=== PATIENT | male | born 1970 | race Caucasian/White ===

== ENCOUNTER 2017-03-24 23:44 | Observation (INO) | payer MEDICARE ==
[2017-03-24] MEDS ORDERED: Sodium Chloride 0.9% 1000 ML 1,000 ML IV SCH (23:45)
[2017-03-24] MEDS ORDERED: BABY ASPIRIN 81 MG CHEW PO ONE (23:54)
[2017-03-24] MEDS ORDERED: SUBLIMAZE 100 MCG/2 ML IV ONE (23:54)
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
[2017-03-25] MEDS ORDERED: BABY ASPIRIN 81 MG CHEW ONE (00:14)
[2017-03-25] MEDS ORDERED: NITRO-BID 2% UD PACKETS ONE (00:14)
[2017-03-25] MEDS ORDERED: SUBLIMAZE 100 MCG/2 ML ONE (00:14)
[2017-03-25] MEDS ORDERED: Sodium Chloride 0.9% 1000 ML 1,000 ML ONE (00:14)
[2017-03-25] MEDS: NITRO-BID 2% UD PACKETS TOP ONE ×2 (00:18→00:25)
[2017-03-25 00:21] LABS: BASOPHIL % 0.9 % (0.0-0.4); Eosinophil % 2.9 % (0.00-5.0); Granulocytes % 58.3 % (36.0-66.0); Lymphocytes % 26.1 % (24.0-44.0); Mean Cell Volume 99.3 fl (78-100); Mean Platelet Volume 9.2 fl (6-9.5); Monocytes % 11.8 % (0.0-12.0); Platelet Count 174 K/mm3 (150-450); Red Blood Count 4.39 M/mm3 (4.1-5.6); Red Cell Distribution Width 13.5 % (11.5-14.0); White Blood Count 4.5 K/mm3 (4.0-10.5)
[2017-03-25 00:44] LABS: ALBUMIN 3.3 g/dL (3.4-5.0); ALKALINE PHOSPHATASE 95 U/L (46-116); ANION GAP 13.1 MEQ/L (5-15); BILIRUBIN,TOTAL 0.5 mg/dL (0.2-1.0); BLOOD UREA NITROGEN 5 mg/dL (9-20); CHLORIDE 103 mEq/L (98-107); Carbon Dioxide 28.5 mEq/L (21-32); Glucose 118 MG/DL (70-110); Potassium 3.9 mEq/L (3.5-5.1); SGOT/AST 36 U/L (15-37); SGPT/ALT 38 U/L (12-78); SODIUM 141 mEq/L (136-145); Total Protein 6.7 gm/dL (6.4-8.2)
[2017-03-25 01:00] LABS: VBG BASE EXCESS 5.5 (-2.0-2.0); VBG CARBOXYHEMOGLOBIN 14.6 % T HGB (0.0-6.9); VBG HCO3- 30.6 meq/L (22-28); VBG HEMOGLOBIN 14.9; VBG O2 SATURATION 97.8 (95-100); VBG pH 7.44 (7.32-7.42)
[2017-03-25] MEDS ORDERED: Zofran 4 MG/2 ML VIAL IV PRN (01:58)
[2017-03-25] MEDS ORDERED: Senokot-S Tablet PO PRN (01:58)
[2017-03-25] MEDS ORDERED: TYLENOL 325 MG PO PRN (01:58)
[2017-03-25] MEDS ORDERED: MAALOX ES 30 ML UNIT DOSE PO PRN (01:58)
[2017-03-25] MEDS ORDERED: MILK OF MAGNESIA 30 ML PO PRN (01:58)
[2017-03-25] MEDS ORDERED: Sodium Chloride 0.9% 500 ML 500 ML IV SCH (01:58)
[2017-03-25] MEDS ORDERED: Spiriva 18 Mcg/Cap Inhaler IH ONE (03:16)
[2017-03-25] MEDS ORDERED: PROVENTIL COMMON CANISTER IH PRN (03:20)
[2017-03-25 05:30] LABS: VBG BASE EXCESS 4.7 (-2.0-2.0); VBG CARBOXYHEMOGLOBIN 5.8 % T HGB (0.0-6.9); VBG HCO3- 30.9 meq/L (22-28); VBG HEMOGLOBIN 14.1; VBG O2 SATURATION 78.8 (95-100); VBG POTASSIUM 4.1 (3.5-5.1); VBG pH 7.39 (7.32-7.42)
[2017-03-25] MEDS ORDERED: PROVENTIL COMMON CANISTER IH SCH (07:00)
[2017-03-25] MEDS ORDERED: Advair Hfa 230/21 Mcg COMMON CANISTER IH SCH (07:00)
[2017-03-25 07:38] VITALS: BP 113/72; PULSE 83; O2SAT 96
--- NOTE | 2017-03-25 08:59 | XRAY ---
Indication: Chest pain and cough. Comparison: October 31, 2016. Portable chest unchanged again demonstrating right lung postsurgical changes with lung volume loss, pleural thickening, and tracheal traction. Heart is not enlarged. No new/acute cardiopulmonary abnormalities.
[2017-03-25] MEDS ORDERED: Ecotrin 325 MG PO SCH (10:00)
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
[2017-03-25] MEDS ORDERED: Spiriva 18 Mcg/Cap Inhaler IH SCH (19:00)
== END 2017-03-25 09:00 | disposition left against medical advice (07) ==
LOC: ED 23:44 → MED SURG 03-25 01:57
PROVIDERS: ADMIT General Practice; ATTEND General Practice
DX: R07.9 Chest pain, unspecified (principal)
CPT/HCPCS: 36000; 36415; 71010; 80053; 80061; 82805; 83721; 84484; 85025; 93005; 93041; 93268; 94640; 94760; 96360; 96361; 96374; 99285; G0378; J3010; A9270-GY

== ENCOUNTER → 2017-12-18 | Emergency (ER) | payer MEDICARE ==
[~2017-12-18] MED LIST: Sodium Chloride 0.9% 1000 ML 1,000 ML IV STA; Sodium Chloride 0.9% 1000 ML 1,000 ML ONE
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
[2017-12-18 11:15] LABS: BASOPHIL % 0.4 % (0.0-0.4); Basophil (Absolute #) 0.02 (0-0.4); Eosinophil % 2.5 % (0.00-5.0); Eosinophil (Absolute #) 0.12 (0-0.5); Granulocyte Absolute (ANC) 3.33 (1.4-6.9); Granulocytes % 68.2 % (36.0-66.0); Hematocrit 42.9 % (42-50); Hemoglobin 14.1 gm/dl (12.5-18.0); Lymphocyte (Absolute #) 0.89 (1.0-4.6); Lymphocytes % 18.2 % (24.0-44.0); Mean Cell Volume 96.8 fl (78-100); Mean Corpuscular Hemoglobin 31.8 pg (26-32); Mean Corpuscular Hgb Concent. 32.9 g/dl (32-36); Monocyte (Absolute #) 0.52 (0.0-1.3); Monocytes % 10.7 % (0.0-12.0); Platelet Count 125 K/mm3 (150-450); Red Blood Count 4.43 M/mm3 (4.1-5.6); Red Cell Distribution Width 13.2 % (11.5-14.0); White Blood Count 4.9 K/mm3 (4.0-10.5)
--- NOTE | 2017-12-18 11:30 | XRAY ---
Indication: Cough. Comparison: August 15, 2017. PA/lateral chest unchanged again demonstrating right lung post surgical changes including lung volume loss, pleural thickening, and tracheal traction. Remaining heart and left lung unremarkable. Bony thorax intact. No new/acute findings. Impression: Stable nonacute chest with chronic features.
--- NOTE | 2017-12-18 11:31 | XRAY ---
Indication: Dizziness. "Running into morrison." Multiple contiguous axial images obtained through the head without contrast. Comparison: None Ventriculosulcal pattern appears symmetric. No acute intracranial hemorrhage, abnormal extra-axial fluid collection, or mass effect. Fourth ventricle is midline without hydrocephalus. Viveros-white matter differentiation is preserved. Bony calvarium intact. Anatomic variant for nonunited posterior arch of C1. Visualized paranasal sinuses and mastoid air cells are clear. Impression: Normal CT head without contrast exam. CT DI 68.98
[2017-12-18 11:38] LABS: ALBUMIN 3.4 g/dL (3.4-5.0); ALKALINE PHOSPHATASE 79 U/L (46-116); ANION GAP 9.1 MEQ/L (5-15); BLOOD UREA NITROGEN 5 mg/dL (9-20); CHLORIDE 104 mEq/L (98-107); Calcium 8.6 mg/dL (8.5-10.1); Carbon Dioxide 28.3 mEq/L (21-32); Creatinine 1 0.72 mg/dl (0.55-1.30); EST GLOMERULAR FILTRATION RATE > 60 ML/MIN; Glucose 124 MG/DL (70-110); Potassium 3.7 mEq/L (3.5-5.1); SGOT/AST 16 U/L (15-37); SGPT/ALT 11 U/L (12-78); SODIUM 138 mEq/L (136-145); Total Protein 6.1 gm/dL (6.4-8.2)
[2017-12-18 11:55] VITALS: O2SAT 96
[2017-12-18 12:26] VITALS: BP 96/58; PULSE 78
== END | disposition left against medical advice (07) ==
LOC: ED 10:15
DX: R42 Dizziness and giddiness (principal); Z79.899 Other long term (current) drug therapy; Z90.2 Acquired absence of lung [part of]; Z86.79 Personal history of other diseases of the circulatory system; Z85.118 Personal history of other malignant neoplasm of bronchus and lung; I25.2 Old myocardial infarction; F17.200 Nicotine dependence, unspecified, uncomplicated
CPT/HCPCS: 36000; 36415; 70450; 71046; 80053; 84484; 85025; 93005; 96360; 99284

== ENCOUNTER 2018-06-29 18:35 | Emergency (ER) | payer MEDICARE ==
[2018-06-29 18:49] VITALS: PULSE 100
[2018-06-29] MEDS ORDERED: TORAdol 30 mg Injection ONE (18:56)
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
[2018-06-29] MEDS: TORAdol 30 mg Injection IM ONE (19:00)
[2018-06-29 20:03] VITALS: BP 103/76; O2SAT 94
--- NOTE | 2018-06-30 08:42 | XRAY ---
Indication: 5th digit pain following injury. Comparison: None 3 views of the left hand demonstrates nondisplaced minimally angulated fracture involving the proximal shaft of the 5th proximal phalanx with soft tissue swelling. Elsewhere mild osteopenia, mild scaphoid trapezium degenerative changes, and radiocarpal joint space narrowing.
== END 2018-06-29 20:25 | disposition home or self-care (01) ==
LOC: ED 18:35
DX: S62.617A Displaced fracture of proximal phalanx of left little finger, initial encounter for closed fracture (principal); W23.0XXA Caught, crushed, jammed, or pinched between moving objects, initial encounter; Y93.F9 Activity, other caregiving; K21.9 Gastro-esophageal reflux disease without esophagitis; J44.9 Chronic obstructive pulmonary disease, unspecified; I50.9 Heart failure, unspecified; F41.8 Other specified anxiety disorders; Z79.899 Other long term (current) drug therapy; Z72.0 Tobacco use; I25.2 Old myocardial infarction; Z85.118 Personal history of other malignant neoplasm of bronchus and lung
CPT/HCPCS: 73130; 96372; 99284; J1885

== ENCOUNTER 2019-07-27 10:25 | Observation (INO) | payer MEDICARE ==
[2019-07-27] MEDS ORDERED: Sodium Chloride 0.9% 1000 ML 1,000 ML IV STA ×4 (10:43→16:14)
[2019-07-27 11:11] LABS: VBG BASE EXCESS 4.6 (-2.0-2.0); VBG CARBOXYHEMOGLOBIN 4.3 % T HGB (0.0-6.9); VBG HCO3- 29.2 meq/L (22-28); VBG HEMOGLOBIN 14.2; VBG O2 SATURATION 88.7 (95-100); VBG POTASSIUM 4.1 (3.5-5.1); VBG pH 7.45 (7.32-7.42)
[2019-07-27 11:19] LABS: BASOPHIL % 0.5 % (0.0-0.4); Basophil (Absolute #) 0.02 (0-0.4); Eosinophil % 1.4 % (0.00-5.0); Eosinophil (Absolute #) 0.06 (0-0.5); Granulocytes % 66.3 % (36.0-66.0); Hematocrit 40.9 % (42-50); Hemoglobin 13.6 gm/dl (12.5-18.0); Lymphocyte (Absolute #) 0.96 (1.0-4.6); Mean Cell Volume 97.1 fl (78-100); Mean Corpuscular Hemoglobin 32.3 pg (26-32); Mean Corpuscular Hgb Concent. 33.3 g/dl (32-36); Monocyte (Absolute #) 0.43 (0.0-1.3); Monocytes % 9.8 % (0.0-12.0); Platelet Count 142 K/mm3 (150-450); Red Blood Count 4.21 M/mm3 (4.1-5.6); Red Cell Distribution Width 13.4 % (11.5-14.0); White Blood Count 4.4 K/mm3 (4.0-10.5)
[2019-07-27 11:26] LABS: INR 1.14 (0.8-3.0); PROTIME 12.9 SECONDS (8.83-12.87)
[2019-07-27 11:28] LABS: PTT 31.4 SECONDS (24.1-36.1)
[2019-07-27 11:30] LABS: ALBUMIN 3.6 g/dL (3.5-5.0); ALKALINE PHOSPHATASE 142 U/L (38-126); AMYLASE 44 U/L (30-110); ANION GAP 10.3 MEQ/L (5-15); BLOOD UREA NITROGEN 9 mg/dL (9-20); CHLORIDE 104 mmol/L (98-107); Calcium 8.7 mg/dL (8.4-10.2); Carbon Dioxide 27 mmol/L (22-30); Creatinine 1 0.66 mg/dL (0.66-1.25); Glucose 117 mg/dL (74-106); LIPASE 34 U/L (23-300); MAGNESIUM 1.6 mg/dL (1.6-2.3); SGOT/AST 292 U/L (17-59); SGPT/ALT 163 U/L (0-50); SODIUM 138 mmol/L (137-145); Total Protein 6.7 g/dL (6.3-8.2)
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
[2019-07-27 11:53] LABS: ETHYL ALCOHOL < 10 mg/dL (0-10)
[2019-07-27] MEDS ORDERED: Sodium Chloride 0.9% 1000 ML 0 ML ONE (12:32)
[2019-07-27 13:52] LABS: Amphetamine,Urine NEGATIVE (NEGATIVE); Barbiturate,Urine NEGATIVE (NEGATIVE); Benzodiazepine,Urine POSITIVE (NEGATIVE); Cocaine,Urine NEGATIVE (NEGATIVE); Methadone,Urine NEGATIVE (NEGATIVE); Opiate,Urine NEGATIVE (NEGATIVE); PCP,Urine NEGATIVE (NEGATIVE); THC,Urine NEGATIVE (NEGATIVE)
[2019-07-27] MEDS ORDERED: Sodium Chloride 0.9% 1000 ML 1,000 ML ONE ×3 (14:18→18:38)
[2019-07-27 14:21] LABS: Appearance CLEAR (CLEAR); Bilirubin NEGATIVE (NEGATIVE); Blood NEGATIVE Ery/ul (0-5); Glucose NEGATIVE (NEGATIVE); Ketones NEGATIVE (NEGATIVE); Leukocyte Esterase NEGATIVE (NEGATIVE); Mucus SLIGHT /HPF (NEGATIVE); Nitrite NEGATIVE (NEGATIVE); Protein,Urine Dip NEGATIVE (Negative); Specific Gravity 1.008 (1.005-1.025); Urobilinogen 4 mg/dL (0-1)
[2019-07-27] MEDS ORDERED: Romazicon 0.5 MG/5 ML Injection IV ONE (15:26)
[2019-07-27] MEDS ORDERED: Romazicon 0.5 MG/5 ML Injection ONE (15:28)
[2019-07-27] MEDS ORDERED: TYLENOL 325 MG PO PRN (16:14)
[2019-07-27 16:40] VITALS: O2SAT 96
[2019-07-27 18:03] VITALS: BP 94/64; PULSE 102
--- NOTE | 2019-07-27 20:10 | XRAY ---
Indication: Weakness and lethargy. Comparison: December 18, 2017. Portable chest unchanged again demonstrating right lung postsurgical changes including lung volume loss, pleural thickening, and tracheal traction. Remaining heart and left lung unremarkable. Bony thorax intact. No new/acute findings.
--- NOTE | 2019-07-27 20:13 | XRAY ---
Indication: Weakness and lethargy. Multiple contiguous axial images obtained through the head without contrast. Comparison: December 18, 2017. Again normal appearing brain parenchyma, ventricles, and bony calvarium. Visualized paranasal sinuses and mastoid air cells are clear. Impression: Normal CT head without contrast exam. Comment: Preliminary interpretation was made by [facility]. No critical discrepancy. CTDI 69.66
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
== END 2019-07-27 19:40 | disposition home or self-care (01) ==
LOC: ED 10:25 → ICU 16:00
PROVIDERS: ADMIT Family Medicine; ATTEND Family Medicine
DX: G45.9 Transient cerebral ischemic attack, unspecified (principal); R41.82 Altered mental status, unspecified; I95.9 Hypotension, unspecified; R42 Dizziness and giddiness; J44.9 Chronic obstructive pulmonary disease, unspecified; Z79.01 Long term (current) use of anticoagulants; Z79.899 Other long term (current) drug therapy
CPT/HCPCS: 36000; 36415; 70450; 71045; 80053; 80307; 81001; 82140; 82150; 82805; 83605; 83690; 83735; 84484; 85025; 85610; 85730; 87040; 87086; 93268; 96360; 96361; 96374; 99285; 99291; G0378; G0480; 96375